=== PATIENT | female | born 1995 | race African-American/Black ===

== ENCOUNTER 2022-10-04 17:53 | Observation (INO) | payer SELFPAY ==
[~2022-10-04] VITALS: Ht 160 cm; Wt 71.2 kg
[2022-10-04] MEDS ORDERED: ONDANSETRON HCL INJ 2MG/ML 2ML 2 MG/ML VIAL IV STA (17:59)
[2022-10-04] MEDS ORDERED: SODIUM CHLORIDE 0.9% 1000ML 1,000 ML IV SCH (18:00)
[2022-10-04] MEDS ORDERED: SODIUM CHLORIDE 0.9% 1000ML 1,000 ML ONE ×2 (18:30→19:37)
[2022-10-04] MEDS ORDERED: PROMETHAZINE HCL (IM) 25 MG/ML VIAL IM ONE (19:37)
[2022-10-04] MEDS ORDERED: PROMETHAZINE 25MG/ NS 50ML (IV) IV ONE (20:00)
[2022-10-04] MEDS ORDERED: SODIUM CHLORIDE 0.9% 1000ML 1,000 ML IV ONE (20:00)
[2022-10-04] MEDS ORDERED: SODIUM CHLORIDE 0.9% 500ML 500 ML IV ONE (21:30)
[2022-10-04] MEDS ORDERED: DIPHENHYDRAMINE HCL INJ 50 MG/ML VIAL IV ONE (21:30)
[2022-10-04] MEDS ORDERED: HALOPERIDOL LACTATE 5 MG/ML VIAL IV ONE (21:30)
[2022-10-04] MEDS ORDERED: SODIUM CHLORIDE 0.9% 500ML 500 ML ONE (21:31)
[2022-10-04] MEDS ORDERED: PROMETHAZINE 25MG/ NS 50ML (IV) IV PRN (22:45)
[2022-10-05] MEDS ORDERED: SIMETHICONE 80 MG CHEW PO PRN (00:30)
[2022-10-05] MEDS ORDERED: MELATONIN 5 MG TABLET PO PRN (00:30)
[2022-10-05] MEDS ORDERED: DIPHENHYDRAMINE HCL 25 MG CAP PO PRN (00:30)
[2022-10-05] MEDS ORDERED: DEXTROSE 50% SYRINGE 50 ML IV PRN (00:30)
[2022-10-05] MEDS ORDERED: HYDRALAZINE HCL 20 MG/ML VIAL IV PRN (00:30)
[2022-10-05] MEDS ORDERED: LIDOCAINE 4% PATCH TP PRN (00:30)
[2022-10-05] MEDS ORDERED: DOCUSATE SODIUM 100 MG CAP PO PRN (00:30)
[2022-10-05] MEDS ORDERED: ACETAMINOPHEN 325 MG TAB PO PRN (00:30)
[2022-10-05] MEDS ORDERED: ALBUTEROL/IPRATROPIUM 3 ML NEB NEB PRN (00:30)
[2022-10-05] MEDS ORDERED: POTASSIUM CHLORIDE 20 MEQ TAB CR PO PRN (00:30)
[2022-10-05] MEDS ORDERED: BENZONATATE 100 MG CAP PO PRN (00:30)
[2022-10-05 01:50] VITALS: BP 124/67
[2022-10-05] MEDS: SODIUM CHLORIDE 0.9% 1000ML 1,000 ML IV SCH ×2 (01:50→08:45)
[2022-10-05 01:58] VITALS: BP 124/67
[2022-10-05 04:00] VITALS: BP 113/71
[2022-10-05 05:30] LABS: BASOPHILS % 0.1 % (0.0-1.0); HEMATOCRIT 38.4 % (34.2-44.1); HEMOGLOBIN 12.4 g/dL (12.0-16.0); LYMPHOCYTES # (AUTO) 1.7 (1.0-3.2); LYMPHOCYTES % 19.1 % (18.0-39.1); MEAN CORPUSCULAR HEMOGLOBIN 32.1 pg (28-32); MEAN CORPUSCULAR HGB CONC 32.3 g/dL (31-35); MEAN CORPUSCULAR VOLUME 99.5 fL (81-99); MONOCYTES # (AUTO) 0.6 (0.2-0.8); MONOCYTES % 7.3 % (4.4-11.3); NEUTROPHILS # (AUTO) 6.3 (2.1-6.9); NEUTROPHILS % 73.3 % (38.7-80.0); PLATELET COUNT 332 x10e3/uL (140-360); RED BLOOD COUNT 3.86 x10e6/uL (3.6-5.1)
[2022-10-05 06:16] LABS: ALBUMIN 3.6 g/dL (3.5-5.0); ALBUMIN/GLOBULIN RATIO 0.9 (0.8-2.0); ANION GAP 14.5 mmol/L (8-16); CALCIUM 8.5 mg/dL (8.4-10.2); CREATININE, SERUM 0.74 mg/dL (0.57-1.11); POTASSIUM 3.5 mmol/L (3.5-5.1)
[2022-10-05] MEDS ORDERED: PANTOPRAZOLE SOD 40 MG TABEC PO SCH (07:30)
[2022-10-05 08:04] VITALS: BP 133/87
[2022-10-05 08:31] VITALS: BP 133/87
[2022-10-05 12:28] VITALS: BP 107/71
[2022-10-05] MEDS ORDERED: PROTONIX40 MG PO (13:26)
[2022-10-05] MEDS ORDERED: PHENERGAN25 MG/1 M1 PO (13:27)
== END 2022-10-05 14:30 | disposition home or self-care (01) ==
LOC: FSED 18:00 → ERHOLD 22:39 → MED/SURG 10-05 01:24
PROVIDERS: ADMIT Internal Medicine; ATTEND Internal Medicine
DX: R11.2 Nausea with vomiting, unspecified (principal); F12.10 Cannabis abuse, uncomplicated; F14.10 Cocaine abuse, uncomplicated; F13.10 Sedative, hypnotic or anxiolytic abuse, uncomplicated; E86.0 Dehydration; K21.9 Gastro-esophageal reflux disease without esophagitis; Z20.822 Contact with and (suspected) exposure to COVID-19
CPT/HCPCS: 36415; 80053 ×2; 80307; 81003; 81025; 85025 ×2; 94799; 96374; 99284; C9113; G0378 ×2; J1200; J1630; J2405; J2550 ×2; J7030 ×2; J7040; S0164; U0002

== ENCOUNTER 2022-10-05 16:27 | Emergency (ER) | payer SELFPAY ==
[~2022-10-05] VITALS: Ht 160 cm; Wt 71.2 kg
[~2022-10-05 16:27] MED LIST: PHENERGAN25 MG/1 M1 PO; PROTONIX40 MG PO
[2022-10-05] MEDS ORDERED: SODIUM CHLORIDE 0.9% 1000ML 1,000 ML IV STA (16:37)
[2022-10-05] MEDS ORDERED: DIPHENHYDRAMINE HCL INJ 50 MG/ML VIAL IV ONE (16:45)
[2022-10-05] MEDS ORDERED: ONDANSETRON HCL INJ 2MG/ML 2ML 2 MG/ML VIAL IV ONE (16:45)
[2022-10-05] MEDS ORDERED: SODIUM CHLORIDE 0.9% 1000ML 1,000 ML ONE (16:52)
== END 2022-10-05 17:17 | disposition home or self-care (01) ==
LOC: FSED 16:32
DX: G24.9 Dystonia, unspecified (principal); R11.2 Nausea with vomiting, unspecified; K21.9 Gastro-esophageal reflux disease without esophagitis
CPT/HCPCS: 96374; 96376; 99283; J1200; J2405; J7030

== ENCOUNTER 2022-10-06 21:50 | Emergency (ER) | payer SELFPAY ==
[~2022-10-06] VITALS: Ht 160 cm; Wt 71.2 kg
[2022-10-06] MEDS ORDERED: DIPHENHYDRAMINE HCL 25 MG CAP PO ONE ×2 (23:30→23:45)
[2022-10-06] MEDS ORDERED: DIPHENHYDRAMINE HCL 25 MG CAP ONE (23:47)
[2022-10-07] MEDS ORDERED: PROMETHAZINE HCL (IM) 25 MG/ML VIAL IM ONE (00:45)
[2022-10-07 00:58] VITALS: BP 120/82
== END 2022-10-07 00:58 | disposition home or self-care (01) ==
LOC: FSED 22:13
DX: R11.2 Nausea with vomiting, unspecified (principal); F12.10 Cannabis abuse, uncomplicated; K21.9 Gastro-esophageal reflux disease without esophagitis
CPT/HCPCS: 96372; 99282; J2550

== ENCOUNTER 2023-01-19 14:31 | Emergency (ER) | payer SELFPAY ==
[~2023-01-19] VITALS: Ht 160 cm; Wt 72.6 kg
[2023-01-19] MEDS ORDERED: PROMETHAZINE HCL (IM) 25 MG/ML VIAL IM ONE ×2 (15:15→15:17)
[2023-01-19] MEDS ORDERED: PROMETHAZINE HC25 M1 PO (15:26)
[2023-01-19] MEDS ORDERED: FAMOTIDINE20 MG PO (15:26)
[2023-01-19] MEDS ORDERED: PHENERGAN SUPP25 MG RC (15:26)
== END 2023-01-19 17:31 | disposition home or self-care (01) ==
LOC: FSED 14:36
DX: R11.2 Nausea with vomiting, unspecified (principal); F12.10 Cannabis abuse, uncomplicated; K21.9 Gastro-esophageal reflux disease without esophagitis; F19.10 Other psychoactive substance abuse, uncomplicated
CPT/HCPCS: 99283; J2550

== ENCOUNTER 2023-01-24 05:25 | Inpatient (IN) | payer SELFPAY ==
[~2023-01-24] VITALS: Ht 160 cm; Wt 72.6 kg
[~2023-01-24 05:25] MED LIST changes: +FAMOTIDINE20 MG PO; +PHENERGAN SUPP25 MG RC; +PROMETHAZINE HC25 M1 PO
[2023-01-24] MEDS ORDERED: SODIUM CHLORIDE 0.9% 1000ML 1,000 ML IV STA ×2 (06:58)
[2023-01-24] MEDS ORDERED: ONDANSETRON HCL INJ 2MG/ML 2ML 2 MG/ML VIAL IV ONE (07:00)
[2023-01-24] MEDS ORDERED: FAMOTIDINE 20 MG/2 ML VIAL IV ONE (07:00)
[2023-01-24] MEDS ORDERED: PROMETHAZINE 25MG/ NS 50ML (IV) IV ONE (07:00)
[2023-01-24] MEDS ORDERED: PROMETHAZINE HCL (IM) 25 MG/ML VIAL IM ONE (07:22)
[2023-01-24] MEDS ORDERED: KETOROLAC TROMETHAMINE 30 MG/ML VIAL IV ONE (07:30)
[2023-01-24] MEDS ORDERED: KETOROLAC TROMETHAMINE 30 MG/ML VIAL ONE (07:38)
[2023-01-24] MEDS ORDERED: ZOLPIDEM TARTRATE 10 MG TAB PO PRN (08:15)
[2023-01-24] MEDS ORDERED: PROMETHAZINE 25MG/ NS 50ML (IV) IV PRN (08:15)
[2023-01-24] MEDS ORDERED: DIPHENHYDRAMINE HCL INJ 50 MG/ML VIAL IV PRN (08:15)
[2023-01-24 11:15] VITALS: BP 108/72
[2023-01-24] MEDS: ONDANSETRON HCL INJ 2MG/ML 2ML 2 MG/ML VIAL IV SCH ×2 (12:19→17:27)
[2023-01-24] MEDS: LACTATED RINGER'S 1,000 ML IV SCH ×2 (12:19→21:49)
[2023-01-24 12:35] VITALS: BP 108/72
[2023-01-24 16:28] VITALS: BP 132/89
[2023-01-24] MEDS: FAMOTIDINE 20 MG/2 ML VIAL IV SCH (17:27)
[2023-01-24] MEDS ORDERED: Morphine 2mg Syringe 2 MG/ML SYR IV PRN (18:45)
[2023-01-24 20:35] VITALS: BP 121/85
[2023-01-24 20:36] VITALS: BP 121/85
[2023-01-25] VITALS (9 sets, daily range): BP systolic 102–120; BP diastolic 63–91
[2023-01-25] MEDS: ONDANSETRON HCL INJ 2MG/ML 2ML 2 MG/ML VIAL IV SCH ×4 (01:36→17:53)
[2023-01-25 06:58] LABS: BASOPHILS % 0.4 % (0.0-1.0); EOSINOPHILS # (AUTO) 0.2 (0.0-0.4); EOSINOPHILS % 2.7 % (0.0-6.0); HEMATOCRIT 34.3 % (34.2-44.1); HEMOGLOBIN 11.7 g/dL (12.0-16.0); LYMPHOCYTES # (AUTO) 1.8 (1.0-3.2); LYMPHOCYTES % 26.4 % (18.0-39.1); MEAN CORPUSCULAR HEMOGLOBIN 32.5 pg (28-32); MEAN CORPUSCULAR HGB CONC 34.1 g/dL (31-35); MEAN CORPUSCULAR VOLUME 95.3 fL (81-99); MONOCYTES # (AUTO) 0.5 (0.2-0.8); NEUTROPHILS # (AUTO) 4.2 (2.1-6.9); NEUTROPHILS % 62.2 % (38.7-80.0); PLATELET COUNT 355 x10e3/uL (140-360); RED CELL DISTRIBUTION WIDTH 10.1 % (11.7-14.4)
[2023-01-25 07:22] LABS: ANION GAP 18.6 mmol/L (8-16); CALCIUM 8.4 mg/dL (8.4-10.2); CREATININE, SERUM 0.72 mg/dL (0.57-1.11); POTASSIUM 3.6 mmol/L (3.5-5.1)
[2023-01-25] MEDS: FAMOTIDINE 20 MG/2 ML VIAL IV SCH ×2 (08:51→17:53)
[2023-01-25] MEDS: ENOXAPARIN SOD INJ 40 MG/0.4 ML SYR SC SCH (08:51)
[2023-01-25] MEDS: KETOROLAC TROMETHAMINE 30 MG/ML VIAL IV PRN ×2 (14:07→22:34)
[2023-01-25] MEDS: Morphine 2mg Syringe 2 MG/ML SYR IV PRN (18:05)
[2023-01-26] VITALS (9 sets, daily range): BP systolic 110–140; BP diastolic 77–103
[2023-01-26] MEDS: ONDANSETRON HCL INJ 2MG/ML 2ML 2 MG/ML VIAL IV SCH ×4 (00:09→21:45)
[2023-01-26 05:19] LABS: BASOPHILS % 0.3 % (0.0-1.0); EOSINOPHILS # (AUTO) 0.1 (0.0-0.4); EOSINOPHILS % 1.3 % (0.0-6.0); HEMATOCRIT 37.6 % (34.2-44.1); HEMOGLOBIN 12.6 g/dL (12.0-16.0); LYMPHOCYTES # (AUTO) 2.1 (1.0-3.2); MEAN CORPUSCULAR HEMOGLOBIN 31.7 pg (28-32); MEAN CORPUSCULAR HGB CONC 33.5 g/dL (31-35); MEAN CORPUSCULAR VOLUME 94.7 fL (81-99); MONOCYTES # (AUTO) 0.7 (0.2-0.8); MONOCYTES % 10.4 % (4.4-11.3); NEUTROPHILS # (AUTO) 3.8 (2.1-6.9); NEUTROPHILS % 56.7 % (38.7-80.0); PLATELET COUNT 377 x10e3/uL (140-360); RED BLOOD COUNT 3.97 x10e6/uL (3.6-5.1); RED CELL DISTRIBUTION WIDTH 10.2 % (11.7-14.4)
[2023-01-26] MEDS: PROMETHAZINE HCL 25 MG SUPP PR SCH ×3 (05:52→18:00)
[2023-01-26 06:08] LABS: ALBUMIN 3.5 g/dL (3.5-5.0); ALBUMIN/GLOBULIN RATIO 0.9 (0.8-2.0); ANION GAP 16.2 mmol/L (8-16); CALCIUM 8.8 mg/dL (8.4-10.2); CREATININE, SERUM 0.76 mg/dL (0.57-1.11); POTASSIUM 3.2 mmol/L (3.5-5.1)
[2023-01-26] MEDS ORDERED: KETOROLAC TROMETHAMINE 10 MG TAB PO PRN (07:15)
[2023-01-26] MEDS ORDERED: ONDANSETRON HCL 4 MG ORAL DISINTEGRATING TAB PO PRN (07:15)
[2023-01-26] MEDS ORDERED: DIPHENHYDRAMINE HCL 25 MG CAP PO PRN (07:15)
[2023-01-26] MEDS ORDERED: PROMETHAZINE HCL 25 MG TAB PO PRN (07:15)
[2023-01-26] MEDS ORDERED: FAMOTIDINE 20 MG TAB PO SCH (08:00)
[2023-01-26] MEDS ORDERED: PANTOPRAZOLE SODIUM 40 MG SUSPDR.PKT PO SCH (08:00)
[2023-01-26] MEDS ORDERED: DEXTROSE 5%/0.45% SOD CHL 1,000 ML IV ONE (08:30)
[2023-01-26] MEDS ORDERED: PROMETHAZINE HCL (IM) 25 MG/ML VIAL IM ONE (08:30)
[2023-01-26] MEDS ORDERED: POTASSIUM CHLORIDE 20MEQ/100ML 100 ML IV ONE ×2 (09:00→22:15)
[2023-01-26] MEDS: FAMOTIDINE 20 MG/2 ML VIAL IV SCH ×2 (09:00→21:45)
[2023-01-26] MEDS: ENOXAPARIN SOD INJ 40 MG/0.4 ML SYR SC SCH (10:04)
[2023-01-26] MEDS: Morphine 2mg Syringe 2 MG/ML SYR IV PRN (21:45)
[2023-01-27] VITALS (7 sets, daily range): BP systolic 98–130; BP diastolic 60–80
[2023-01-27] MEDS: PROMETHAZINE 12.5MG/ NACL 0.9% 12.5 MG/50 ML BAG IV SCH ×3 (00:20→11:39)
[2023-01-27] MEDS: ONDANSETRON HCL INJ 2MG/ML 2ML 2 MG/ML VIAL IV SCH ×4 (05:14→18:00)
[2023-01-27 05:16] LABS: BASOPHILS % 0.3 % (0.0-1.0); EOSINOPHILS % 0.4 % (0.0-6.0); HEMATOCRIT 38.2 % (34.2-44.1); HEMOGLOBIN 13.1 g/dL (12.0-16.0); LYMPHOCYTES % 26.4 % (18.0-39.1); MEAN CORPUSCULAR HEMOGLOBIN 32.3 pg (28-32); MEAN CORPUSCULAR HGB CONC 34.3 g/dL (31-35); MEAN CORPUSCULAR VOLUME 94.3 fL (81-99); MONOCYTES # (AUTO) 0.8 (0.2-0.8); MONOCYTES % 10.2 % (4.4-11.3); NEUTROPHILS # (AUTO) 4.7 (2.1-6.9); NEUTROPHILS % 62.3 % (38.7-80.0); PLATELET COUNT 398 x10e3/uL (140-360); RED BLOOD COUNT 4.05 x10e6/uL (3.6-5.1); RED CELL DISTRIBUTION WIDTH 10.3 % (11.7-14.4)
[2023-01-27 05:40] LABS: ANION GAP 16.3 mmol/L (8-16); CALCIUM 8.9 mg/dL (8.4-10.2); CREATININE, SERUM 0.73 mg/dL (0.57-1.11); MAGNESIUM 1.8 MG/DL (1.3-2.1); PHOSPHORUS 3.6 MG/DL (2.3-4.7); POTASSIUM 3.3 mmol/L (3.5-5.1)
[2023-01-27] MEDS: FAMOTIDINE 20 MG/2 ML VIAL IV SCH (09:38)
[2023-01-27] MEDS: ENOXAPARIN SOD INJ 40 MG/0.4 ML SYR SC SCH (09:39)
[2023-01-27] MEDS ORDERED: PROMETHAZINE HCL 6.25 MG/5 ML SYRUP JT ONE (11:00)
[2023-01-27] MEDS ORDERED: POTASSIUM CHLORIDE 20MEQ/100ML 100 ML IV ONE (11:00)
[2023-01-27] MEDS ORDERED: ONDANSETRON ODT4 MG PO (11:04)
[2023-01-27] MEDS ORDERED: SODIUM CHLORIDE 0.9% 250ML 250 ML ONE (11:12)
[2023-01-27] MEDS ORDERED: LORAZEPAM 0.5 MG TAB PO ONE (11:15)
[2023-01-27] MEDS ORDERED: DEXTROSE 5%/0.45% SOD CHL 1,000 ML IV ONE ×2 (11:15→15:30)
[2023-01-27] MEDS ORDERED: FAMOTIDINE 20 MG TAB PO SCH (16:30)
[2023-01-27] MEDS ORDERED: SODIUM CHLORIDE 0.9% IV SCH (20:00)
[2023-01-27] MEDS ORDERED: PROMETHAZINE HCL IV SCH (20:00)
[2023-01-27] MEDS ORDERED: PROMETHAZINE 12.5MG/ NACL 0.9% 12.5 MG/50 ML BAG IV SCH (20:00)
== END 2023-01-27 20:07 | disposition home or self-care (01) | DRG 897 ==
LOC: FSED 05:57 → ERHOLD 08:05 → MED/SURG 10:20 → OBSVTOIN 01-25 14:56
PROVIDERS: ADMIT Family Medicine Adult Medicine; ATTEND Family Medicine Adult Medicine
PROC: 05HY33Z Insertion of Infusion Device into Upper Vein, Percutaneous Approach (ICD-10-PCS; principal; 2023-01-25)
DX: F12.188 Cannabis abuse with other cannabis-induced disorder (principal); R11.2 Nausea with vomiting, unspecified; K21.9 Gastro-esophageal reflux disease without esophagitis; F10.20 Alcohol dependence, uncomplicated; F14.10 Cocaine abuse, uncomplicated; E86.0 Dehydration; I45.6 Pre-excitation syndrome; R00.2 Palpitations; Z20.822 Contact with and (suspected) exposure to COVID-19; D64.9 Anemia, unspecified
CPT/HCPCS: 36415; 74176; 76705; 80048; 80053; 80076; 80307; 81003; 81025; 83690; 83735; 84100; 85025; 93005; 96361; 96374; 96375; 99252; 99284; G0378; J1650; J1885; J2270; J2405; J2550; J3480; J7030; J7050

== ENCOUNTER 2023-03-13 17:07 | Emergency (ER) | payer SELFPAY ==
[~2023-03-13] VITALS: Ht 160 cm; Wt 49.9 kg
[~2023-03-13 17:07] MED LIST changes: +ONDANSETRON ODT4 MG PO
[2023-03-13] MEDS ORDERED: PROMETHAZINE HCL (IM) 25 MG/ML VIAL IM ONE ×2 (17:30→17:36)
[2023-03-13] MEDS ORDERED: CHLORDIAZEPOXID25 MG PO (17:36)
[2023-03-13] MEDS ORDERED: PROMETHAZINE HC25 M1 PO (17:36)
[2023-03-13] MEDS ORDERED: FAMOTIDINE20 MG PO (17:36)
== END 2023-03-13 17:47 | disposition home or self-care (01) ==
LOC: FSED 17:13
DX: R11.2 Nausea with vomiting, unspecified (principal); F12.10 Cannabis abuse, uncomplicated; F19.10 Other psychoactive substance abuse, uncomplicated; K21.9 Gastro-esophageal reflux disease without esophagitis
CPT/HCPCS: 99282; J2550

== ENCOUNTER 2023-09-30 21:41 | Emergency (ER) | payer SELFPAY ==
[~2023-09-30] VITALS: Ht 160 cm; Wt 72.1 kg
[~2023-09-30 21:41] MED LIST changes: +CHLORDIAZEPOXID25 MG PO; +OMEPRAZOLE40 MG PO
[2023-09-30] MEDS ORDERED: ONDANSETRON HCL INJ 2MG/ML 2ML 2 MG/ML VIAL IV STA (21:47)
[2023-09-30] MEDS ORDERED: KETOROLAC TROMETHAMINE 30 MG/ML VIAL IV STA (21:57)
[2023-09-30] MEDS ORDERED: ONDANSETRON HCL INJ 2MG/ML 2ML 2 MG/ML VIAL ONE (22:00)
[2023-09-30] MEDS ORDERED: SODIUM CHLORIDE 0.9% 1000ML 1,000 ML ONE (22:00)
[2023-09-30] MEDS ORDERED: SODIUM CHLORIDE 0.9% 1000ML 1,000 ML IV SCH (22:00)
[2023-09-30] MEDS ORDERED: KETOROLAC TROMETHAMINE 30 MG/ML VIAL ONE (22:02)
[2023-09-30] MEDS ORDERED: SODIUM CHLORIDE FLUSH 10 ML SYR IV PRN (22:15)
[2023-09-30 22:20] LABS: BASOPHILS % 0.5 % (0.0-1.0); EOSINOPHILS # (AUTO) 0.1 (0.0-0.4); EOSINOPHILS % 1.3 % (0.0-6.0); HEMATOCRIT 37.3 % (34.2-44.1); HEMOGLOBIN 12.3 g/dL (12.0-16.0); LYMPHOCYTES # (AUTO) 3.1 (1.0-3.2); MEAN CORPUSCULAR HEMOGLOBIN 32.2 pg (28-32); MEAN CORPUSCULAR VOLUME 97.6 fL (81-99); MONOCYTES # (AUTO) 0.8 (0.2-0.8); MONOCYTES % 9.3 % (4.4-11.3); NEUTROPHILS # (AUTO) 4.3 (2.1-6.9); NEUTROPHILS % 51.7 % (38.7-80.0); PLATELET COUNT 336 x10e3/uL (140-360); RED BLOOD COUNT 3.82 x10e6/uL (3.6-5.1); RED CELL DISTRIBUTION WIDTH 10.7 % (11.7-14.4); WHITE BLOOD COUNT 8.38 x10e3/uL (4.8-10.8)
[2023-09-30 22:25] LABS: AMPHETAMINES SCREEN,URINE NEGATIVE (NEGATIVE); BENZODIAZEPINES SCREEN,URINE NEGATIVE (NEGATIVE); CLARITY,URINE CLEAR (CLEAR); COLOR,URINE YELLOW (YELLOW); KETONES,URINE NEGATIVE (NEGATIVE); LEUKOCYTE ESTERASE ,URINE NEGATIVE (NEGATIVE); NITRITE,URINE NEGATIVE (NEGATIVE); PHENCYCLIDINE SCREEN,URINE NEGATIVE (NEGATIVE); PROTEIN,URINE DIPSTICK NEGATIVE (NEGATIVE); URINE UROBILINOGEN 0.2 mg/dL (0.2 - 1)
[2023-09-30] MEDS ORDERED: IOPAMIDOL 370 MG/ML 100 ML INFUS..BTL INJ ONE (22:28)
[2023-09-30 22:33] LABS: BACTERIA,URINE FEW /HPF; EPITHELIAL CELLS,URINE MODERATE /LPF; RBC,URINE 0-5 /HPF (0-5); WBC,URINE (MAN) 0-5 /HPF (0-5)
[2023-09-30 22:37] LABS: ALBUMIN 4.1 g/dL (3.5-5.0); ANION GAP 13.9 mmol/L (8-16); CALCIUM 9.4 mg/dL (8.4-10.2); CREATININE, SERUM 0.8 mg/dL (0.57-1.11); POTASSIUM 3.9 mmol/L (3.5-5.1)
[2023-09-30] MEDS ORDERED: DICYCLOMINE HCL20 MG PO (23:29)
[2023-09-30] MEDS ORDERED: ONDANSETRON ODT4 MG PO (23:29)
[2023-09-30 23:36] VITALS: O2SAT 100
== END 2023-09-30 23:37 | disposition home or self-care (01) ==
LOC: FSED 21:46
DX: R10.31 Right lower quadrant pain (principal)
CPT/HCPCS: 36415; 74177; 80053; 80307; 81001; 81003; 81025; 85025; 99284; J1885; J2405; J7030; Q9967